=== PATIENT | male | born 1960 | race Caucasian/White ===

== ENCOUNTER 2018-04-13 00:23 | Observation (INO) | payer BC, OTHER ==
[~2018-04-13] VITALS: Ht 170.2 cm; Wt 84.4 kg
[2018-04-13] MEDS ORDERED: THIAMINE INJECTION 100 MG, FOLIC ACID INJECTION 1 MG, VITAMIN MULTI INJECTION 10 ML, MA... IV STA ×5 (00:27)
[2018-04-13] MEDS ORDERED: ONDANSETRON 4 MG/2 ML (SDV) Z0FRAN IVP ONE (00:30)
[2018-04-13] MEDS ORDERED: LISI1TAB10 (00:31)
[2018-04-13] MEDS ORDERED: ASPI-983 (00:31)
[2018-04-13] MEDS ORDERED: METO-395 (00:31)
[2018-04-13] MEDS ORDERED: ATOR40TA70 (00:31)
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
[2018-04-13] MEDS ORDERED: D5 1/2 NS W/KCL 20 MEQ/L 1,000 ML IV ONE (00:38)
[2018-04-13] MEDS ORDERED: MAGNESIUM SULFATE 1 GM/2 ML VIAL ONE (00:38)
[2018-04-13] MEDS ORDERED: THIAMINE 100 MG/ML 2 ML (VITAMIN B-1) VIAL ONE (00:39)
[2018-04-13] MEDS ORDERED: FOLIC ACID 1 MG/0.2 ML SYR (ED) ONE (00:39)
[2018-04-13] MEDS ORDERED: VITAMIN MULTI- 12 INJECTION 10 ML VIAL IV ONE (00:39)
[2018-04-13 00:46] LABS: HEMOGLOBIN 12.7 G/DL (13.3-17.7); MEAN PLATELET VOLUME 10.8 FL (7.4-10.4); RED BLOOD COUNT 3.81 10^6/uL (4.35-5.85); WHITE BLOOD COUNT 10.3 10^3/uL (4.3-11.0)
[2018-04-13 01:06] LABS: ALANINE AMINOTRANSFERASE 23 U/L (0-55); ALBUMIN 3.5 GM/DL (3.2-4.5); ALKALINE PHOSPHATASE 48 U/L (40-136); BILIRUBIN,TOTAL 0.4 MG/DL (0.1-1.0); BUN/CREATININE RATIO 17; CALCIUM 7.9 MG/DL (8.5-10.1); CARBON DIOXIDE 15 MMOL/L (21-32); CHLORIDE 109 MMOL/L (98-107); CREATININE SERUM 1.04 MG/DL (0.60-1.30); GFR ESTIMATED > 60; GLUCOSE 101 MG/DL (70-105); POTASSIUM 3.3 MMOL/L (3.6-5.0); SODIUM 137 MMOL/L (135-145); TOTAL PROTEIN 5.5 GM/DL (6.4-8.2)
[2018-04-13 02:35] VITALS: BP 106/64
[2018-04-13 02:45] VITALS: BP 93/54
[2018-04-13 03:00] VITALS: BP 94/58
[2018-04-13] MEDS: D5 1/2 NS W/KCL 20 MEQ/L 1,000 ML IV SCH ×2 (03:01→08:31)
[2018-04-13] MEDS ORDERED: ONDANSETRON 4 MG/2 ML (SDV) Z0FRAN IV PRN (03:15)
[2018-04-13] MEDS ORDERED: IBUPROFEN 800 MG (MOTRIN) TAB PO PRN (03:15)
[2018-04-13 04:00] VITALS: BP 102/59
[2018-04-13 05:11] LABS: BILIRUBIN,URINE NEGATIVE (NEGATIVE); CLARITY,URINE CLEAR; COLOR,URINE YELLOW; GLUCOSE, URINE (UA) 1+ (NEGATIVE); KETONES,URINE NEGATIVE (NEGATIVE); LEUKOCYTE ESTERASE ,URINE NEGATIVE (NEGATIVE); NITRITE,URINE NEGATIVE (NEGATIVE); PH,URINE 5 (5-9); PROTEIN,URINE NEGATIVE (NEGATIVE); UROBILINOGEN,URINE NORMAL (NORMAL)
[2018-04-13 05:16] LABS: BACTERIA,URINE NEGATIVE /HPF; SQUAMOUS EPITHELIAL CELL,UR RARE /HPF
[2018-04-13 05:27] LABS: AMPHETAMINE SCREEN, URINE NEGATIVE (NEGATIVE); BARBITURATE SCREEN URINE NEGATIVE (NEGATIVE); BENZODIAZEPINES SCREEN URINE NEGATIVE (NEGATIVE); CANNABINOID SCREEN, URINE NEGATIVE (NEGATIVE); COCAINE SCREEN URINE NEGATIVE (NEGATIVE); METHADONE STAT NEGATIVE (NEGATIVE); METHAMPHETAMINE SCREEN URINE S NEGATIVE (NEGATIVE); OPIATE SCREEN URINE NEGATIVE (NEGATIVE); OXYCODONE STAT NEGATIVE (NEGATIVE); PROPOXYPHENE STAT NEGATIVE (NEGATIVE); TRICYCLIC ANTIDEPRESSANTS SCRE NEGATIVE (NEGATIVE)
[2018-04-13] MEDS ORDERED: THIAMINE 100 MG (VITAMIN B-1) TAB PO SCH (07:00)
[2018-04-13 08:26] VITALS: BP 108/71
[2018-04-13] MEDS ORDERED: FOLIC ACID 1 MG TAB PO SCH (09:00)
[2018-04-13 09:20] VITALS: BP 108/71
--- NOTE | 2018-05-04 15:41 | History & Physical-Hospitalist ---
History of Present Illness HPI/Chief Complaint The patient was admitted in the wee hours of 04/13/18 after presenting to the emergency room with significant alcohol intoxication and a blood alcohol of 345. At 09 100 he pulled out his IV and shortly thereafter left AMA Date Seen 05/04/18 Time Seen by Provider: 00:00 Attending Physician Chip Gilmore MD PCP No,Local Physician Referring Physician Date of Admission Apr 13, 2018 at 02:30 Home Medications & Allergies Home Medications Reviewed patient Home Medication Reconciliation performed by pharmacy medication reconciliations survey field technician and/or nursing. Patients Allergies have been reviewed. Allergies Allergies Coded Allergies No Allergy Information Available (Unverified04/13/18) Past Luorfzi-Kmsodg-Qwazte Hx Past Med/Social Hx: Reviewed Nursing Past Med/Soc Hx Patient Social History Alcohol Use: Regular Use Number of Drinks Today: GG Alcohol Beverage of Choice: Beer, Whiskey Recreational Drug Use: No Smoking Status: Current Everyday Smoker Type Used: Cigarettes Physical Abuse Screen: No Sexual Abuse: No Recent Foreign Travel: No Contact w/other who traveled: No Recent Hopitalizations: No Recent Infectious Disease Expo: No Immunizations Up To Date Pediatric: No Seasonal Allergies Seasonal Allergies: No Past Medical History Cardiac: High Cholesterol, Hypertension History of Blood Disorders: No Adverse Reaction to Blood Liz: No Review of Systems Constitutional: see HPI Physical Exam Physical Exam Vital Signs Capillary Refill : Less Than 3 Seconds Height, Weight, BMI Height: 5'7.00" Weight: 186lbs. 2.0oz. [id number]; 29.2 BMI Method:Stated General Appearance: Other (left AMA) Results Results/Procedures Labs Patient resulted labs reviewed. Assessment/Plan Admission Diagnosis Alcohol intoxication Admission Status: Observation Assessment and Plan The patient left AMA shortly after 0900 Clinical Quality Measures DVT/VTE Risk/Contraindication: Risk Factor Score Per Nursin RFS Level Per Nursing on Admit: 2=Moderate CHIP GILMORE MD May 04, 2018 15:41
== END 2018-04-13 09:20 | disposition left against medical advice (07) ==
LOC: ER 00:26 → ICU 01:15 → UNDOADMOB 01:15 → ICU 02:26 → UNDODISOB 09:20
PROVIDERS: ADMIT Internal Medicine; ATTEND Internal Medicine
DX: F10.121 Alcohol abuse with intoxication delirium (principal); F17.210 Nicotine dependence, cigarettes, uncomplicated
CPT/HCPCS: 36415; 80053; 80306; 80320; 81000; 85027; 93005; 96361; 96374